=== PATIENT | male | born 1975 | race Caucasian/White ===

== ENCOUNTER 2017-02-28 21:12 | Emergency (ER) | payer OTHER ==
[~2017-02-28] VITALS: Ht 177.8 cm; Wt 88.8 kg
[~2017-02-28 21:12] MED LIST: RANI150 PO; TYLE3 PO; ZOFR4TAB3 SL
[2017-02-28 21:20] VITALS: BP 125/82; PULSE 73; RESP 18; TEMP 98.8
[2017-02-28] MEDS ORDERED: LIDOCAINE HCL 1% 50 ML VIAL INFIL ONE (21:30)
[2017-02-28] MEDS ORDERED: TETANUS/DIPHTHERIA TOXOID ADULT 0.5 ML VIAL IM ONE (21:30)
[2017-02-28] MEDS ORDERED: CEPH-460 PO (22:14)
--- NOTE | 2017-02-28 22:14 | PD ---
HPI Chief Complaint: Laceration/Skin Injury Time Seen by Provider: 21:27 Travel History International Travel<30 days: No Contact w/Intl Traveler<30days: No Traveled to known affect area: No History of Present Illness HPI 42-year-old male presents to the emergency room for evaluation of laceration to the bottom of his heel that occurred just prior to arrival. Patient states he was wearing flip on sandals when he accidentally kicked a baseball pitching machine that had a small metal piece sticking out. The metal piece went under his sandal and cut his heel. It did not go through the sandal. Patient went home and took a shower but could not wash it out as well as he wanted to. Unknown last tetanus. FOR[facility]LY [facility] Past Medical History Cancer: Yes (testicular ca) Diminished Hearing: No Immunizations Current: Yes Radiation Therapy: Yes Tetanus Vaccination: > 5 Years Influenza Vaccination: No Past Surgical History Other Surgery: Yes (Left testicle removed) Social History Alcohol Use: Yes (rare) Tobacco Use: No (QUIT OCTOBER 2013) Substance Use: No Allergies-Medications (Allergen,Severity, Reaction): Coded Allergies: No Known Allergies (Verified , 07/29/15) Reported Meds & Prescriptions Reported Meds & Active Scripts Active No Active Prescriptions or Reported Medications Review of Systems Except as stated in HPI: all other systems reviewed are Neg Physical Exam Narrative GENERAL: Well-nourished, well-developed male in no acute distress. Afebrile. Ambulatory. SKIN: Focused skin assessment warm/dry. There is a 1.5 cm triangular shaped skin flap to the left plantar heel HEAD: Normocephalic. EYES: No scleral icterus. No injection or drainage. NECK: Supple, trachea midline. No JVD or lymphadenopathy. CARDIOVASCULAR: Regular rate and rhythm without murmurs, gallops, or rubs. RESPIRATORY: Breath sounds equal bilaterally. No accessory muscle use. PSYCHIATRIC: No delusional thought processes. No hallucinations. Data Data Last Documented VS Vital Signs Date Time Temp Pulse Resp B/P (MAP) Pulse Ox O2 Delivery O2 Flow Rate FiO2 02/28/17 21:20 98.8 73 18 125/82 (96) Orders Orders Lidocaine 1% Inj (50 Ml) (Xylocaine 1% I (02/28/17 21:30) Tetanus/Diphtheria Tox Adult (Tetanus/Di (02/28/17 21:30) MDM Medical Decision Making Medical Screen Exam Complete: Yes Emergency Medical Condition: Yes Medical Record Reviewed: Yes Differential Diagnosis Laceration, avulsion, abrasion Narrative Course 42-year-old male presents to the emergency room for evaluation of a laceration to his left plantar foot that occurred just prior to arrival. Patient cut his foot on a metal piece that was sticking out of a machine. It did not go through his shoe. He washed it before coming to the ER. Physical exam reveals a 1.5 cm triangular skin flap to the left plantar heel. Laceration was thoroughly cleansed and then repaired by the student in the emergency room under my supervision. Patient was discharged with prescription for Keflex and wound care instructions and told to follow-up with a primary care physician or return for worsening symptoms. He understands and agrees to plan. Procedures Procedure Narrative LACERATION LOCATION: Left plantar heel LENGTH: 1.5 cm NUMBER OF STITCHES/RAJAN: 6 simple interrupted REPAIR: The area of the laceration was prepped with Betadine and sterilely draped. The laceration was infiltrated with 1% lidocaine. The wound was copiously irrigated and explored without evidence of foreign body, tendon injury or neurovascular injury. The wound was closed using 5-0 Prolene. This was a single layer repair. A sterile dressing was applied. The patient was advised to keep the dressing clean and dry. Patient tolerated the procedure well. Diagnosis Primary Impression: Laceration of left heel without complication Qualified Codes: S91.312A - Laceration without foreign body, left foot, initial encounter Referrals: Primary Care Physician Additional Instructions: Rest and drink plenty of fluids. Keflex as directed, until gone. Keep wound clean and dry. Apply triple and a medical event daily. Change dressing daily. Sutures out in 10 days. Take ibuprofen with food as directed, as needed for pain. Follow-up with a primary care physician. Return to the emergency room for worsening symptoms. Scripts No Active Prescriptions or Reported Meds Disposition: 01 DISCHARGE HOME Condition: Stable Michelle Fry Feb 28, 2017 22:14
== END 2017-02-28 22:31 | disposition home or self-care (01) ==
LOC: PHEFT 21:12
DX: S91.312A Laceration without foreign body, left foot, initial encounter (principal); Z23 Encounter for immunization; W45.8XXA Other foreign body or object entering through skin, initial encounter
CPT/HCPCS: 12001; 90471; 90714